=== PATIENT | female | born 1975 | race Caucasian/White ===

== ENCOUNTER 2017-06-14 09:13 | Emergency (ER) | payer SELFPAY ==
--- NOTE | 2017-06-14 09:31 | Emergency Department Record ---
History of Present Illness - General Chief complaint: Flank Pain Stated complaint: I THINK IT'S A KIDNEY STONE Time Seen by Provider: 06/14/17 09:25 Mode of Arrival: Ambulatory - History of Present Illness Initial comments: left flank pain and no dysuria. and she denies vomiting some nausea and this started 6 days ago Onset/Timin -: Days(s) Radiation: L flank Severity: Moderate Severity scale (1-10): 6 Quality: Aching Consistency: Constant Improves with: None Worsens with: None Associated Symptoms: Denies other symptoms - Related Data Sexually active: No Home Medications Medication Instructions Recorded Confirmed Last Taken Amlodipine Besylate 2.5 mg PO DAILY 06/14/17 06/14/17 Unknown Metoprolol Succinate 25 mg PO DAILY 06/14/17 06/14/17 Unknown Previous Rx's Medication Instructions Recorded Cyclobenzaprine HCl [Flexeril] 10 mg PO TID #30 tablet 06/14/17 Tramadol HCl [Ultram] 50 mg PO Q8H #14 tab 06/14/17 Allergies Allergy/AdvReac Type Severity Reaction Status Date / Time Sulfa (Sulfonamide Allergy HIVES Verified 06/14/17 09:21 Antibiotics) Travel Screening - Travel/Exposure Within Last 30 Days Have you traveled within the last 30 days?: No Review of Systems Reviewed: No additional complaints except as noted below Constitutional: Reports: As per HPI. Denies: Chills, Fever, Malaise, Night sweats, Weakness, Weight change Eyes: Reports: As per HPI. Denies: Eye discharge, Eye pain, Photophobia, Vision change ENT: Reports: As per HPI. Denies: Congestion, Dental pain, Ear pain, Epistaxis , Hearing loss, Throat pain Respiratory: Reports: As per HPI. Denies: Cough, Dyspnea, Hemoptysis, Stridor, Wheezes Cardiovascular: Reports: As per HPI. Denies: Arrhythmia, Chest pain, Dyspnea on exertion, Edema, Murmurs, Orthopnea, Palpitations, Paroxysmal nocturnal dyspnea, Rheumatic Fever, Syncope Endocrine: Reports: As per HPI. Denies: Fatigue, Heat or cold intolerance, Polydipsia, Polyuria Gastrointestinal: Reports: As per HPI. Denies: Abdominal pain, Constipation, Diarrhea, Hematemesis, Hematochezia, Melena, Nausea, Vomiting Genitourinary: Reports: As per HPI. Denies: Abnormal menses, Discharge, Dyspareunia, Dysuria, Frequency, Hematuria, Incontinence, Retention, Urgency Musculoskeletal: Reports: As per HPI. Denies: Arthralgia, Back pain, Gout, Joint swelling, Myalgia, Neck pain Skin: Reports: As per HPI. Denies: Bruising, Change in color, Change in hair/ nails, Lesions, Pruritus, Rash Neurological: Reports: As per HPI. Denies: Abnormal gait, Confusion, Headache, Numbness, Paresthesias, Seizure, Tingling, Tremors, Vertigo, Weakness Psychiatric: Reports: As per HPI. Denies: Anxiety, Auditory hallucinations, Depression, Homicidal thoughts, Suicidal thoughts, Visual hallucinations Hematological/Lymphatic: Reports: As per HPI. Denies: Anemia, Blood Clots, Easy bleeding, Easy bruising, Swollen glands Past Medical History - SOCIAL HISTORY Smoking Status: Never smoker Alcohol Use: None Drug Use: None - RESPIRATORY Hx Respiratory Disorders: No - CARDIOVASCULAR Hx Cardio Disorders: Yes Hx Hypertension: Yes - NEURO Hx Neuro Disorders: No - GI Hx GI Disorders: Yes Comment:: constipation - Hx Genitourinary Disorders: Yes Hx Kidney Stones: Yes - ENDOCRINE Hx Endocrine Disorders: Yes Hx Thyroid Disease: Yes - MUSCULOSKELETAL Hx Musculoskeletal Disorders: No - PSYCH Hx Psych Problems: Yes Hx Depression: Yes Comment:: insomnia - HEMATOLOGY/ONCOLOGY Hx Hematology/Oncology Disorders: No Family Medical History Any Significant Family History?: Yes Hx Heart Disease: Father, Mother Hx Resp Disorders: Father Physical Exam - General General Appearance: Alert, Oriented x3, Cooperative, No acute distress - Head Head exam: Normal inspection - Eye Eye exam: Normal appearance, PERRL Pupils: Normal accommodation - ENT ENT exam: Normal exam, Mucous membranes moist, Normal external ear exam, Normal orophraynx, TM's normal bilaterally Ear exam: Normal external inspection. negative: External canal tenderness Nasal Exam: Normal inspection. negative: Discharge, Sinus tenderness Mouth exam: Normal external inspection, Tongue normal Teeth exam: Normal inspection. negative: Dental caries Throat exam: Normal inspection. negative: Tonsillar erythema, Tonsillar exudate - Neck Neck exam: Normal inspection, Full ROM. negative: Tenderness - Respiratory Respiratory exam: Normal lung sounds bilaterally. negative: Respiratory distress - Cardiovascular Cardiovascular Exam: Regular rate, Normal rhythm, Normal heart sounds - GI/Abdominal GI/Abdominal exam: Soft, Normal bowel sounds. negative: Tenderness - Rectal Rectal exam: Deferred - exam: Deferred - Extremities Extremities exam: Normal inspection, Full ROM, Normal capillary refill. negative: Tenderness - Back Back exam: Reports: Normal inspection, Full ROM, Tenderness (left flank pain). Denies: Muscle spasm, Rash noted - Neurological Neurological exam: Alert, Normal gait, Oriented X3, Reflexes normal - Psychiatric Psychiatric exam: Normal affect, Normal mood - Skin Skin exam: Dry, Intact, Normal color, Warm Course Vital Signs 06/14/17 09:16 Temperature 97.9 F Pulse Rate 92 H Respiratory 20 Rate Blood Pressure 147/102 Pulse Ox 99 Medical Decision Making - Lab Data Result diagrams: 06/14/17 09:40 06/14/17 09:40 Disposition Clinical Impression: Lumbar strain Qualifiers: Encounter type: initial encounter Qualified Code(s): S39.012A - Strain of muscle, fascia and tendon of lower back, initial encounter Disposition: Home, Self-Care Condition: (1) Good Instructions: Musculoskeletal Pain (ED) Additional Instructions: heat three times a day follow up with a family [facility]oto in 5 days flexeril 10 mg three times a day Prescriptions: Cyclobenzaprine HCl [Flexeril] 10 mg PO TID #30 tablet Tramadol HCl [Ultram] 50 mg PO Q8H #14 tab Forms: Patient Portal Access Time of Disposition: 10:41 Quality - Quality Measures Quality Measures: N/A - Blood Pressure Screening Does Patient Have Any of the Following: No Blood Pressure Classification: Hypertensive Reading Systolic Measurement: 147 Diastolic Measurement: 102 Screening for High Blood Pressure: < First Hypertensive BP, F/U Documented > [ [id number]] First Hypertensive Follow-up Interventions: Referral to alternative/primary care provider.
[2017-06-14] MEDS: ONDANSETRON HCL IV 4 MG/2 ML VIAL IV ONE (09:52)
[2017-06-14] MEDS: 0.9 % SODIUM CHLORIDE 1000ML 1,000 ML IV ONE (09:52)
[2017-06-14] MEDS: KETOROLAC 30 MG/ML VIAL IVP ONE (09:52)
[2017-06-14 09:54] LABS: BASO % 0.4 % (0-6); EOS % 1.1 % (0-6); GRAN % 73.4 % (47-80); HEMATOCRIT 40.4 % (35.0-47.0); HEMOGLOBIN 13.2 gm/dl (11.6-16.0); LYMPH % 21.2 % (16-45); MEAN CELL VOLUME 93.7 fl (81-97); MEAN CORPUSCULAR HEMOGLOBIN 30.6 pg (27-33); MEAN CORPUSCULAR HGB CONC 32.7 g/dl (32-36); MEAN PLATELET VOLUME 9.4 fl (7.4-10.4); MONO % 3.9 % (0-9); PLATELET COUNT 355 K/uL (130-400); RED BLOOD COUNT 4.31 M/uL (3.80-5.40); RED CELL DISTRIBUTION WIDTH 12.9 % (11.5-14.5); WHITE BLOOD COUNT W/O DIFF 4.6 K/uL (4.2-12.2)
[2017-06-14 09:55] LABS: URINE APPEARANCE CLEAR; URINE BILIRUBIN NEGATIVE (NEGATIVE); URINE BLOOD NEGATIVE (NEGATIVE); URINE COLOR YELLOW; URINE GLUCOSE (UA) NEGATIVE (NEGATIVE); URINE KETONE NEGATIVE (NEGATIVE); URINE LEUKOCYTE ESTERASE NEGATIVE (NEGATIVE); URINE NITRITE NEGATIVE (NEGATIVE); URINE PROTEIN NEGATIVE (NEGATIVE); URINE UROBILINOGEN 0.2 E.U./dL (0.20 - 1.00)
[2017-06-14 10:04] LABS: BLOOD UREA NITROGEN 16 mg/dL (6-20); CREATININE 0.7 mg/dL (0.5-0.9); EST GLOMERULAR FILTRATION RATE > 60 mL/min
[2017-06-14 10:07] LABS: GLUCOSE,RANDOM 142 mg/dL (74-109)
[2017-06-14] MEDS: TRAMADOL HCL 50 MG TABLET PO ONE (10:45)
--- NOTE | 2017-06-15 07:29 | CT SCAN REPORT ---
EXAM: CT OF THE ABDOMEN AND PELVIS WITHOUT CONTRAST HISTORY: LEFT FLANK PAIN WITH NAUSEA FOR FOUR DAYS. PRIOR HYSTERECTOMY, CHOLECYSTECTOMY, AND SMALL BOWEL RESECTION. TECHNIQUE: Thin collimation helical CT examination of the abdomen and pelvis was performed without intravenous or oral contrast. Lack of oral and IV contrast utilization limits evaluation of bowel and solid viscera respectively. Comparison: CT of the abdomen and pelvis without contrast dated 12/01/16. FINDINGS: There is minimal dependent atelectasis within each lung base. The visualized lung bases are otherwise clear. No pleural or pericardial effusion. The liver, spleen, pancreas, and adrenal glands are normal in appearance. The gallbladder is surgically absent. No biliary ductal dilatation is seen. No intraabdominal nor retroperitoneal lymphadenopathy is identified. The vasculature as visualized is normal in appearance. The kidneys are normal in size, position, and are smoothly marginated. No nephrolithiasis nor renal mass. The renal collecting systems are normal in caliber throughout and no ureteral calculus is seen. No intrinsic urinary bladder abnormality is visualized though evaluation is limited by lack of distention. The uterus is surgically absent. The left ovary is again visualized and not enlarged measuring 1.7 x 2.9 cm. The right ovary is likely surgically absent. No new pelvic mass, lymphadenopathy, or free pelvic fluid is seen. No gross bowel dilatation nor bowel wall thickening is seen. The appendix is visualized and normal in appearance. There is an anastomotic suture line within a segment of small bowel in the mid abdomen. There is a tiny umbilical hernia, fat filled. No new lytic or blastic bone lesion is seen. There are mild degenerative changes of the lower lumbar spine redemonstrated. IMPRESSION: 1. NO CT EVIDENCE OF NEPHROLITHIASIS NOR OBSTRUCTIVE UROPATHY. 2. NO CONVINCING CT EVIDENCE OF AN ACUTE INTRAABDOMINAL NOR INTRAPELVIC PROCESS. 3. STATUS POST CHOLECYSTECTOMY AND HYSTERECTOMY. SURGICAL CHANGES IN A SEGMENT OF A SMALL BOWEL ALSO REDEMONSTRATED. 4. NOT MENTIONED ABOVE IS APPARENT BORDERLINE WALL THICKENING OF THE ASCENDING COLON LIKELY DUE TO INCOMPLETE DISTENTION. JOB NUMBER: [id number] [facility]
== END 2017-06-14 10:55 | disposition home or self-care (01) ==
LOC: ER 09:13
DX: S39.012A Strain of muscle, fascia and tendon of lower back, initial encounter (principal); R11.2 Nausea with vomiting, unspecified; Z87.442 Personal history of urinary calculi; X58.XXXA Exposure to other specified factors, initial encounter
CPT/HCPCS: 74176; 80048; 81003; 85025; 96374; 96375; 99284; J1885; J2405